=== PATIENT | female | born 1985 | race Caucasian/White ===

== ENCOUNTER 2018-04-20 20:44 | Emergency (ER) | payer BC, OTHER ==
--- NOTE | 2018-04-20 22:38 | ER ---
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 aj Transition of care: patient was not received from another setting of care. Onset of symptoms was April 20, 2018. Risk Assessment: Do you want to hurt yourself or someone else? Patient reports no desire to harm self or others. Initial Sepsis Screen: Does the patient meet any 2 criteria? No. Patient's initial sepsis screen is negative. Does the patient have a suspected source of infection? No. Patient's initial sepsis screen is negative. Care prior to arrival: None. 21:01 Method Of Arrival: Ambulatory aj 21:01 Acuity: KELLEE 4 aj Triage Assessment: 21:03 General: Appears in no apparent distress. comfortable, Behavior is calm, cooperative, aj appropriate for age. Pain: Complains of pain in left knee. Neuro: Level of Consciousness is awake, alert, obeys commands, Oriented to person, place, time, situation, Appropriate for age. Respiratory: Airway is patent Respiratory effort is even, unlabored, Respiratory pattern is regular, symmetrical. Derm: Skin is intact, is healthy with good turgor, Skin is pink, warm \T\ dry. normal. Musculoskeletal: Reports pain in left knee. 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 - Social history:: Smoking status: Patient uses tobacco products, smokes one pack cigarettes per day. Patient uses street drugs, marijuana. - Ebola Screening: : Patient negative for fever greater than or equal to 101.5 degrees Fahrenheit, and additional compatible Ebola Virus Disease symptoms Patient denies exposure to infectious person Patient denies travel to an Ebola-affected area in the 21 days before illness onset No symptoms or risks identified at this time. Screenin:35 Abuse screen: Denies threats or abuse. Denies injuries from another. Nutritional ao screening: No deficits noted. Tuberculosis screening: No symptoms or risk factors identified. Fall Risk None identified. Assessment: 21:33 General: Appears in no apparent distress. uncomfortable, Behavior is calm, cooperative, ao appropriate for age. Pain: Complains of pain in left knee. Neuro: Level of Consciousness is awake, alert, obeys commands, Oriented to person, place, time, situation, Appropriate for age Moves all extremities. Full function Speech is normal. Cardiovascular: Capillary refill < 3 seconds. Respiratory: Airway is patent Respiratory effort is even, unlabored, Respiratory pattern is regular, symmetrical. GI: Abdomen is non-distended. : No signs and/or symptoms were reported regarding the genitourinary system. EENT: No signs and/or symptoms were reported regarding the EENT system. Derm: No signs and/or symptoms reported regarding the dermatologic system. Musculoskeletal: Reports pain in left knee. 22:41 Reassessment: Alexander HODGE in to see pt and discuss xray results with her. fc Vital Signs: 21:03 BP 104 / 75; Pulse 71; Resp 19; Temp 97.7; Pulse Ox 100% on R/A; Weight 54.43 kg; aj Height 5 ft. 2 in. (157.48 cm); 21:03 Body Mass Index 21.95 (54.43 kg, 157.48 cm) aj ED Course: 20:55 Patient arrived in ED. ds1 21:02 Triage completed. aj 21:03 Arm band placed on left wrist. Patient placed in waiting room, Patient notified of wait aj time. X-ray ordered. 21:33 Rinku Griffiths, RN is Primary Nurse. ao 21:35 Patient has correct armband on for positive identification. Pulse ox on. NIBP on. ao 21:36 Knee Left 3 View XRAY In Process Unspecified. EDMS 21:43 Alexander Gomez NP is PHCP. pm1 21:43 Steve Orlando MD is Attending Physician. pm1 22:47 No provider procedures requiring assistance completed. Patient did not have IV access fc during this emergency room visit. Misael wrap to left knee. Administered Medications: 22:41 Drug: [place] 5 mg-325 mg 1 tabs Route: PO; fc 22:59 Follow up: Response: No adverse reaction; Pain is decreased fc Outcome: 22:37 Discharge ordered by MD. pm1 22:49 Discharged to home with crutches, with family. 22:49 Condition: good 22:49 Discharge instructions given to patient, friend, Instructed on discharge instructions, follow up and referral plans. no drinking with medication, no driving heavy equipment, medication usage, crutch walking, Demonstrated understanding of instructions, follow-up care, medications, crutch walking, Prescriptions given X 1. 22:59 Patient left the ED. fc Signatures: Dispatcher [employer] EDMS Meera Dos Santos RN RN aj Chretien, Felicia, RN RN fc Sanford, Demi ds1 Rinku Griffiths RN RN ao Marinas, Patrick, NP MEDIA REPORTER pm1
--- NOTE | 2018-04-20 22:38 | EDPHYS ---
Physician Documentation [facility] Name: Asya Geller Age: 32 yrs Sex: Female : 1985 Arrival Date: 04/20/2018 Time: 20:55 Bed Treatment Private MD: ED Physician Steve Orlando HPI: 04/20 23:00 This 32 yrs old Female presents to ER via Ambulatory with complaints of Knee pm1 Pain. 23:00 The patient presents with pain, that is acute. The complaints affect the left knee. pm1 Context: The problem was sustained at home, resulted from the patient falling, down stairs, the patient can fully bear weight, the patient is able to ambulate, Problem is a result from a previous injury: No. Onset: The symptoms/episode began/occurred today. Modifying factors: the symptoms are aggravated by Touching area. Associated signs and symptoms: Pertinent positives: swelling, Pertinent negatives calf tenderness, numbness, tingling. The patient has not experienced similar symptoms in the past. 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 - Social history:: Smoking status: Patient uses tobacco products, smokes one pack cigarettes per day. Patient uses street drugs, marijuana. - Ebola Screening: : Patient negative for fever greater than or equal to 101.5 degrees Fahrenheit, and additional compatible Ebola Virus Disease symptoms Patient denies exposure to infectious person Patient denies travel to an Ebola-affected area in the 21 days before illness onset No symptoms or risks identified at this time. ROS: 23:00 Constitutional: Negative for fever, chills, and weight loss, Eyes: Negative for injury, pm1 pain, redness, and discharge, ENT: Negative for injury, pain, and discharge, Neck: Negative for injury, pain, and swelling, Cardiovascular: Negative for chest pain, palpitations, and edema, Respiratory: Negative for shortness of breath, cough, wheezing, and pleuritic chest pain, Abdomen/GI: Negative for abdominal pain, nausea, vomiting, diarrhea, and constipation, Back: Negative for injury and pain, : Negative for injury, bleeding, discharge, and swelling. 23:00 Skin: Negative for injury, rash, and discoloration, Neuro: Negative for headache, weakness, numbness, tingling, and seizure. 23:00 MS/extremity: Positive for pain, swelling, tenderness, of the left knee. Exam: 23:00 Constitutional: This is a well developed, well nourished patient who is awake, alert, pm1 and in no acute distress. Head/Face: Normocephalic, atraumatic. Eyes: Pupils equal round and reactive to light, extra-ocular motions intact. Lids and lashes normal. Conjunctiva and sclera are non-icteric and not injected. Cornea within normal limits. Periorbital areas with no swelling, redness, or edema. ENT: Nares patent. No nasal discharge, no septal abnormalities noted. Tympanic membranes are normal and external auditory canals are clear. Oropharynx with no redness, swelling, or masses, exudates, or evidence of obstruction, uvula midline. Mucous membranes moist. Neck: Trachea midline, no thyromegaly or masses palpated, and no cervical lymphadenopathy. Supple, full range of motion without nuchal rigidity, or vertebral point tenderness. No Meningismus. Chest/axilla: Normal chest wall appearance and motion. Nontender with no deformity. No lesions are appreciated. Cardiovascular: Regular rate and rhythm with a normal S1 and S2. No gallops, murmurs, or rubs. Normal PMI, no JVD. No pulse deficits. Respiratory: Lungs have equal breath sounds bilaterally, clear to auscultation and percussion. No rales, rhonchi or wheezes noted. No increased work of breathing, no retractions or nasal flaring. Abdomen/GI: Soft, non-tender, with normal bowel sounds. No distension or tympany. No guarding or rebound. No evidence of tenderness throughout. Back: No spinal tenderness. No costovertebral tenderness. Full range of motion. Skin: Warm, dry with normal turgor. Normal color with no rashes, no lesions, and no evidence of cellulitis. 23:00 Musculoskeletal/extremity: Extremities: grossly normal except: noted in the left knee: ecchymosis, tenderness, There is no evidence of decreased ROM, deformity. Vital Signs: 21:03 BP 104 / 75; Pulse 71; Resp 19; Temp 97.7; Pulse Ox 100% on R/A; Weight 54.43 kg; aj Height 5 ft. 2 in. (157.48 cm); 21:03 Body Mass Index 21.95 (54.43 kg, 157.48 cm) aj MDM: 21:43 Patient medically screened. pm1 22:37 Data reviewed: vital signs. Data interpreted: Pulse oximetry: on room air is 100 %. pm1 Interpretation: normal. Counseling: I had a detailed discussion with the patient and/or guardian regarding: the historical points, exam findings, and any diagnostic results supporting the discharge/admit diagnosis, radiology results, the need for outpatient follow up, to return to the emergency department if symptoms worsen or persist or if there are any questions or concerns that arise at home. 04/20 21:05 Order name: Knee Left 3 View XRAY 04/20 22:43 Order name: Misael Wrap; Complete Time: 22:47 pm1 04/20 22:43 Order name: Crutches; Complete Time: 22:47 pm1 Administered Medications: 22:41 Drug: [place] 5 mg-325 mg 1 tabs Route: PO; 22:59 Follow up: Response: No adverse reaction; Pain is decreased fc Disposition: 04/21 06:38 Co-signature as Attending Physician, Steve Orlando MD Available for consultation at ps1 all times. . Disposition: 04/20/18 22:37 Discharged to Home. Impression: Contusion of left knee. - Condition is Stable. - Discharge Instructions: Contusion, Knee Pain. - Prescriptions for Naprosyn 500 mg Oral Tablet - take 1 tablet by ORAL route 2 times per day take with food; 30 tablet. - Medication Reconciliation Form, Thank You Letter, Antibiotic Education, Prescription Opioid Use form. - Follow up: Emergency Department; When: As needed; Reason: Worsening of condition. Follow up: Private Physician; When: 2 - 3 days; Reason: Recheck today's complaints, Continuance of care, Re-evaluation by your physician. - Problem is new. - Symptoms have improved. Signatures: Dispatcher [employer] Meera Pollock RN RN Shannen Ramirez RN RN Alexander Gomez, MERCERIZING RANGE FEEDER MERCERIZING RANGE FEEDER pm1 Steve Orlando MD MD ps1 Corrections: (The following items were deleted from the chart) 04/20 22:59 22:37 04/20/2018 22:37 Discharged to Home. Impression: Contusion of left knee. fc Condition is Stable. Forms are Medication Reconciliation Form, Thank You Letter, Antibiotic Education, Prescription Opioid Use. Follow up: Emergency Department; When: As needed; Reason: Worsening of condition. Follow up: Private Physician; When: 2 - 3 days; Reason: Recheck today's complaints, Continuance of care, Re-evaluation by your physician. Problem is new. Symptoms have improved. pm1
[2018-04-20] MEDS ORDERED: HYDROCODONE/APAP 5/325 MG TAB ONE (22:45)
--- NOTE | 2018-04-21 07:00 | RAD REPORT ---
EXAM DESCRIPTION: RAD - Knee Left 3 View - 04/20/2018 9:40 pm CLINICAL HISTORY: Knee pain following fall COMPARISON: None. FINDINGS: No fracture, dislocation or periosteal reaction.No joint effusion seen. No joint space sundeep rowing. Contusion or edema changes are present anterior to the knee joint. No foreign body. IMPRESSION: Soft tissue contusion or edema without bone or joint acute finding. Clinical concerns for internal derangement or occult bony injury could be further assessed with MR im aging.
== END 2018-04-20 22:59 | disposition home or self-care (01) ==
LOC: ER 20:44
DX: S80.02XA Contusion of left knee, initial encounter (principal); W10.9XXA Fall (on) (from) unspecified stairs and steps, initial encounter; Y93.9 Activity, unspecified; Y92.009 Unspecified place in unspecified non-institutional (private) residence as the place of occurrence of the external cause; Z98.82 Breast implant status; F17.210 Nicotine dependence, cigarettes, uncomplicated
CPT/HCPCS: 99284

== ENCOUNTER 2025-03-02 00:53 | Emergency (ER) | payer BC, SELFPAY ==
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
[2025-03-02] MEDS ORDERED: ONDANSETRON 4 MG/2 ML VIAL ONE (01:29)
[2025-03-02] MEDS ORDERED: TDAP (DIPHTH,PERTUSS(ACELL),TET VAC) 0.5 ML VIAL IMVAC ONE (01:30)
[2025-03-02] MEDS ORDERED: NA CHLORIDE 0.9% 1,000 ML ONE (01:30)
[2025-03-02] MEDS ORDERED: MORPHINE 4 MG/ML SYR ONE ×2 (01:30→02:07)
[2025-03-02 01:51] LABS: Anion Gap 9.7 mEq/L (5.0-15.0); BUN Blood Urea Nitrogen 21.0 mg/dL (7-18); Glucose Level 114.0 mg/dL (74-106); Potassium 3.7 mEq/L (3.5-5.1)
[2025-03-02 01:52] LABS: Absolute Lymphocytes (CBC) 3.0 K/uL (0.7-4.9); Hematocrit 40.9 % (36.0-45.0); Hemoglobin 14.0 g/dL (12.0-15.0); MCH 31.7 pg (27.0-35.0); MCHC 34.1 g/dL (32.0-36.0); MCV 92.8 fL (80-100); MPV 9.4 fL (7.6-11.3); Nucleated RBC Absolute Count 0.0 (0-0); Nucleated Red Blood Cells % 0.1 % (0-0); RBC Red Blood Cell Count 4.41 M/uL (3.86-4.86); White Blood Count 9.00 thou/uL (4.3-10.9)
[2025-03-02] MEDS ORDERED: LIDOCAINE HCL JELLY 2% 6 ML SYRINGE TOP ONE (02:11)
[2025-03-02] MEDS ORDERED: NA CHLORIDE 0.9% 100 ML ONE (02:52)
[2025-03-02] MEDS ORDERED: LIDOCAINE 2% W/EPI 1:200,000 MPF 20 ML VIAL IM ONE (02:52)
[2025-03-02] MEDS ORDERED: PIPERACIL/TAZO 3.375 GM VIAL IV ONE (02:53)
[2025-03-02] MEDS ORDERED: LORazepam 2 MG/ML VIAL ONE (03:20)
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
--- NOTE | 2025-03-02 03:33 | RAD REPORT ---
EXAM: CT Head and Maxillofacial Without Intravenous Contrast FACILITY: [facility] CLINICAL HISTORY: 39 years, Female; trauma, dog bite TECHNIQUE: Axial computed tomography images of the head/brain and face without intravenous contrast. Sagitta l and coronal reformatted images were created and reviewed. This CT exam was performed using one or more of the following dose reduction techniques: automated exposure control, adjustment of the m A and/or kV according to patient size, and/or use of iterative reconstruction technique. COMPARISON: No relevant prior studies available. FINDINGS: Brain: Unremarkable. No hemorrhage. No significant white matter disease. No edema. Ventricles: Unremarkable. No ventriculomegaly. Bones/joints: No acute fracture. Soft tissues: Laceration along the right anterior maxillary subcutaneous tissues. Subcutaneous emphysema along the right mandible. Sinuses: Unremarkable as visualized. No acute sinusitis. Mastoid air cells: Unremarkable as visualized. No mastoid effusion. Orbits: Unremarkable as visualized. IMPRESSION: 1. No acute intracranial findings. 2. Laceration along the right anterior maxillary subcutaneous tissues. Subcutaneous emphysema along the right mandible. Electronically signed by: Sher Larkin MD 03/02/2025 03:29 AM CDT RP H Due to temporary technical issues with the PACS/[employer] reporting system, reports are being jeremías d by the in-house radiologist without review as a courtesy to ensure prompt reporting the interpreting radiologist is fully responsible for the content of the report. Transcribed Date/Time: 03/02/2025 3:32 AM
--- NOTE | 2025-03-02 03:47 | RAD REPORT ---
EXAM: CT Neck With Intravenous Contrast CLINICAL HISTORY: The patient is 39 years old and is Female; trauma, dog bite TECHNIQUE: Axial computed tomography images of the neck with intravenous contrast. Sagittal and coronal refo rmatted images were created and reviewed. This CT exam was performed using one or more of the following dose reduction techniques: automated exposure control, adjustment of the mA and/or kV acc ording to patient size, and/or use of iterative reconstruction technique. COMPARISON: No relevant prior studies available. FINDINGS: OROPHARYNX: Unremarkable. No significant tonsillar enlargement. No peritonsillar abscess. HYPOPHARYNX: Unremarkable. LARYNX: Unremarkable. Normal epiglottis. TRACHEA: Unremarkable. RETROPHARYNGEAL SPACE: Unremarkable. SUBMANDIBULAR/PAROTID GLANDS: Unremarkable. Glands are normal in size. THYROID: Unremarkable. No enlarged or calcified nodules. BONES/JOINTS: Incidental notation of torus maxillaris. No acute fracture. SOFT TISSUES: Cutaneous irregularity in the anterior right facial soft tissues possibly related t o reported history of recent trauma. Multiple foci of soft tissue gas along the lateral inferior right facial/perimandibular soft tissues with some ill-defined fat stranding. VASCULATURE: No acute findings. LYMPH NODES: Unremarkable. No lymphadenopathy. DENTAL: Streak artifact due to dental hardware. LUNG APICES: Unremarkable as visualized. IMPRESSION: 1. Cutaneous irregularity in the anterior right facial soft tissues possibly related to reported hi story of recent trauma. 2. Multiple foci of soft tissue gas along the lateral inferior right facial/perimandibular soft tis sues with some ill-defined fat stranding. This is likely related to reported history of penetrating trauma. Infection could also produce this. Electronically signed by: Garrett Gross MD 03/02/2025 03:44 AM CDT Due to temporary technical issues with the PACS/[employer] reporting system, reports are being jeremías d by the in-house radiologist without review as a courtesy to ensure prompt reporting the interpreting radiologist is fully responsible for the content of the report. Transcribed Date/Time: 03/02/2025 3:47 AM
--- NOTE | 2025-03-02 04:03 | ER ---
Nurse's Notes [facility] Name: Asya Geller Age: 39 yrs Sex: Female : 1985 Arrival Date: 03/02/2025 Time: 00:53 Bed 5 Private MD: Diagnosis: Bitten by dog;Laceration without foreign body of other part of head, initial encounter;Laceration without foreign body of nose, initial encounter;Puncture wound without foreign body of unspecified part of neck, initial encounter Presentation: 03/02 01:00 Chief complaint: Patient states: UNPROVOKED ATTACK BY HER DOG. STATES SHE WAS BIT IN jj7 HER FACE, NECK AND LIP. Coronavirus screen: At this time, the client does not indicate any symptoms associated with coronavirus-19. Ebola Screen: No symptoms or risks identified at this time. Initial Sepsis Screen: Does the patient meet any 2 criteria? No. Patient's initial sepsis screen is negative. Does the patient have a suspected source of infection? No. Patient's initial sepsis screen is negative. Risk Assessment: Do you want to hurt yourself or someone else? Patient reports no desire to harm self or others. Onset of symptoms was March 02, 2025. 01:00 Method Of Arrival: Ambulatory 7 01:00 Acuity: KELLEE 3 jj7 Triage Assessment: 01:00 General: Appears in no apparent distress. uncomfortable, Behavior is calm, cooperative, jj7 appropriate for age. Pain: Complains of pain in face and neck Pain currently is 10 out of 10 on a pain scale. Derm: Skin LAC TO RIGHT CHEEK. PUNCTURE WOUNDS TO LIP AND UNDER NECK. Musculoskeletal: 01:00 Injury Description: Laceration sustained to right cheek Puncture sustained to mouth and jj7 neck. PATIENT SUPPORT TECH: 01:00 LMP N/A - Hysterectomy, Not jj7 Historical: - Allergies: 02:52 Keflex; jj7 - PMHx: 02:52 Depressive disorder; ADHD; jj7 - Immunization history:: Adult Immunizations up to date, Last tetanus immunization: < 5 years ago. - Infectious Disease History:: Denies. - Social history:: Smoking status: Patient reports the use of cigarette tobacco products, smokes one-half pack cigarettes per day, Patient uses alcohol, weekly. street drugs, marijuana, Patient/guardian denies using. Screenin:14 [facility] ED Fall Risk Assessment (Adult) History of falling in the last 3 months, bm8 including since admission No falls in past 3 months (0 pts) Confusion or Disorientation No (0 pts) Intoxicated or Sedated No (0 pts) Impaired Gait No (0 pts) Mobility Assist Device Used No (0 pt) Altered Elimination No (0 pt) Score/Fall Risk Level 0 - 2 = Low Risk Oriented to surroundings, Maintained a safe environment, Educated pt \T\ family on fall prevention, incl call for assistance when getting out of bed, Assessed \T\ reinforced patient's understanding of fall precautions, Hourly rounding (assess needs \T\ fall precautionary measures) done, Used ambulatory aids as needed (educated on \T\ assisted with), Used gait belt as appropriate. Abuse screen: Denies threats or abuse. Nutritional screening: No deficits noted. Tuberculosis screening: No symptoms or risk factors identified. Assessment: 02:15 Reassessment: This RN called to report bite. RN spoken to Melanie. pt informed bethel to call when she gets home to call report. 03:16 Reassessment: Patient appears in no apparent distress at this time. Patient and/or bm8 family updated on plan of care and expected duration. Pain level reassessed. Patient is alert, oriented x 3, equal unlabored respirations, skin warm/dry/pink. Patient states feeling better. Vital Signs: 01:00 BP 127 / 90; Pulse 93; Resp 16; Temp 97.6; Pulse Ox 98% ; Weight 58.97 kg; Height 5 ft. jj7 2 in. ; Pain 10/10; 03:16 BP 121 / 84; Pulse 78; Resp 17; Temp 97.6; Pulse Ox 100% ; Pain 3/10; bm8 01:00 Body Mass Index 23.78 (58.97 kg, 157.48 cm) jj7 01:00 Pain Scale: Adult jj7 03:16 Pain Scale: Adult bm8 [place] Coma Score: 03:16 Eye Response: spontaneous(4). Motor Response: obeys commands(6). Verbal Response: bm8 oriented(5). Total: 15. ED Course: 00:53 Patient arrived in ED. mr 01:00 Arm band placed on right wrist. Patient placed in an exam room, on a stretcher. jj7 01:06 Triage completed. jj7 01:12 Rodríguez Briceno PA-C is PHCP. cp 01:12 Emeka Hung DO is Attending Physician. cp 01:15 Inserted saline lock: 18 gauge in right antecubital area, using aseptic technique. bm8 Blood collected. Flushed with 10 mL NS. 01:20 Freddy Herrera, RN is Primary Nurse. bm8 02:40 CT Head Brain wo Cont In Process Unspecified. EDMS 02:40 CT Facial Bones W/ Con \T\ Mpr In Process Unspecified. EDMS 02:41 CT Soft Tissue Neck W/contr In Process Unspecified. EDMS 04:01 Bowen Loya MD is Referral Physician. cp 04:13 Assist provider with laceration repair on right cheek that was between 2.6 to 7.5 cm bm8 using sutures. Set up tray. Performed by Rodríguez Briceno PA-C Patient tolerated well. IV discontinued, intact, bleeding controlled, No redness/swelling at site. Pressure dressing applied. 04:15 Patient has correct armband on for positive identification. Bed in low position. Call bm8 light in reach. Side rails up X 1. Adult w/ patient. Provided Education on: post er care. Administered Medications: 01:37 Drug: NS 0.9% IV 1000 ml IV at 1000 ml once; to be given as a bolus over 60 minutes bm8 Route: IV; Rate: 1000 ml; Site: right antecubital; 03:25 Follow up: Response: No adverse reaction; IV Status: Completed infusion bm8 01:37 Drug: morphine IVP or IV 4 mg IVP once over 4 mins Route: IVP; Infused Over: 4 mins; bm8 Site: right antecubital; 03:26 Follow up: Response: No adverse reaction bm8 01:37 Drug: Boostrix Tdap IM 0.5 ml IM once; as a single dose Route: IM; Site: right deltoid; bm8 03:26 Follow up: Response: No adverse reaction bm8 01:37 Drug: Ondansetron IVP 4 mg IVP once; over 2 minutes Route: IVP; Site: right antecubital;bm8 03:26 Follow up: Response: No adverse reaction bm8 03:05 Drug: Piperacillin-Tazobactam IVPB 3.375 grams IVPB once over 60 mins; (mix in NS 100 bm8 mL) Route: IVPB; Infused Over: 60 mins; Site: right antecubital; 03:35 Follow up: Response: No adverse reaction; IV Status: Completed infusion bm8 03:06 Drug: Lidocaine Infiltration (2 %) 20 ml 5 ml Infiltration once; with epinephrine bm8 Volume: 5 ml; Route: Infiltration; 03:36 Follow up: Response: No adverse reaction bm8 03:25 Drug: Ativan IVP 1 mg IVP once Route: IVP; Site: right antecubital; bm8 03:46 Follow up: Response: No adverse reaction bm8 Medication: 03:16 Vaccine Information Statement (VIS) provided today. Questions and/or concerns bm8 addressed. VIS edition date: December 27, 2020. Outcome: 04:03 Discharge ordered by MD. santoyo 04:13 Discharged to home ambulatory, with family, bm8 04:13 Condition: stable 04:13 Discharge instructions given to patient, family, Instructed on discharge instructions, follow up and referral plans. no drinking with medication, no driving heavy equipment, medication usage, safety practices, Demonstrated understanding of instructions, follow-up care, medications, Prescriptions given X 2, 04:16 Patient left the ED. bm8 Signatures: Dispatcher [employer] EDID RojasAlberta du, Phil Reg Rodríguez Briceno, PA-C PASpenser Melendrez cp, RN RN jj7 Freddy Herrera RN RN bm8 Corrections: (The following items were deleted from the chart) 03:08 03:08 Allergies: unknown abx; bm8 bm8 03:08 03:08 PMHx: PTSD; bm8 bm8
--- NOTE | 2025-03-02 04:04 | EDPHYS ---
Physician Documentation [facility] Name: Asya Geller Age: 39 yrs Sex: Female : 1985 Arrival Date: 03/02/2025 Time: 00:53 Bed 5 Private MD: ED Physician Emeka Hung HPI: 03/02 01:20 This 39 yrs old Female presents to ER via Ambulatory with complaints of Dog Bite to face. 01:20 The patient was bitten on the face, by a dog, as a result of being attacked by the animal, in an unprovoked manner, at home. 01:20 Onset: The symptoms/episode began/occurred just prior to arrival. Animal information: Animal control has been notified. Secondary to the bite the patient reports multiple lacerations, that are deep, largest noted to right facial cheek. 01:20 Associated signs and symptoms: Pertinent positives: bony tenderness, with a possible cp underlying fracture, swelling at site, Pertinent negatives: fever, motor deficit. GEOLOGICAL E LOGGER: 01:00 LMP N/A - Hysterectomy, Not jj7 Historical: - Allergies: 02:52 Keflex; jj7 - PMHx: 02:52 Depressive disorder; ADHD; jj7 - Immunization history:: Adult Immunizations up to date, Last tetanus immunization: < 5 years ago. - Infectious Disease History:: Denies. - Social history:: Smoking status: Patient reports the use of cigarette tobacco products, smokes one-half pack cigarettes per day, Patient uses alcohol, weekly. street drugs, marijuana, Patient/guardian denies using. ROS: 01:25 Constitutional: Negative for body aches, chills, fever, poor PO intake, cp 01:25 Skin: Positive for laceration(s), of the face, multiple with largest noted to right cp facial cheek, 01:25 Neuro: Negative for altered mental status, dizziness, headache, numbness, weakness, Exam: 01:25 Constitutional: The patient appears in no acute distress, alert, awake, cp non-diaphoretic, non-toxic, well developed, well nourished, in obvious pain, uncomfortable, 01:25 Eyes: Pupils: equal, round, and reactive to light and accomodation, Conjunctiva: cp normal, no exudate, no injection, Sclera: no appreciated abnormality, Lids and lashes: appear normal, bilaterally, :25 ENT: External ear(s): are unremarkable, Nose: bleeding, and is minimal, no septal hematoma is appreciated, laceration, that is superficial, that is linear, right side of upper bridge of nose, Mouth: Lips: moist, Oral mucosa: moist, Posterior pharynx: Airway: no evidence of obstruction, patent, :25 Neck: External neck: puncture wound, small deep laceration noted anterior upper neck cp and right lateral lower jaw with no active bleeding, surrounding swelling and tenderness to palpation, C-spine: vertebral tenderness, is not appreciated, crepitus, is not appreciated, ROM/movement: limited range of motion, is not appreciated, :25 Chest/axilla: Inspection: normal, Palpation: is normal, no crepitus, no tenderness, :25 Cardiovascular: Rate: normal, Rhythm: regular, JVD: is not appreciated, :25 Respiratory: the patient does not display signs of respiratory distress, Respirations: normal, no use of accessory muscles, no retractions, labored breathing, is not present, Breath sounds: are clear throughout, no decreased breath sounds, no stridor, no wheezing, :25 Abdomen/GI: Inspection: abdomen appears normal, Palpation: abdomen is soft and non-tender, in all quadrants, :25 Back: pain, is absent, ROM is normal, :25 Neuro: Orientation: to person, place \T\ time. Mentation: is normal, Motor: moves all fours, strength is normal, Sensation: no obvious gross deficits, Vital Signs: 01:00 BP 127 / 90; Pulse 93; Resp 16; Temp 97.6; Pulse Ox 98% ; Weight 58.97 kg; Height 5 ft. jj7 2 in. ; Pain 10/10; 03:16 BP 121 / 84; Pulse 78; Resp 17; Temp 97.6; Pulse Ox 100% ; Pain 3/10; bm8 01:00 Body Mass Index 23.78 (58.97 kg, 157.48 cm) j7 01:00 Pain Scale: Adult jj7 03:16 Pain Scale: Adult bm8 [place] Coma Score: 03:16 Eye Response: spontaneous(4). Motor Response: obeys commands(6). Verbal Response: bm8 oriented(5). Total: 15. Laceration: 03:55 Wound Repair of 6cm ( 2.4in ) subcutaneous laceration to right facial cheek. cp Irregularly shaped.. Skin/tissue flap noted.. Distal neuro/vascular/tendon intact. Anesthesia: Wound infiltrated with 5 mls of 2% lidocaine. Wound prep: Moderate cleansing by me. Skin closed with 5 5-0 Prolene using interrupted sutures and sterile technique. Dressed with Bacitracin, 4x4's. Patient tolerated well. MDM: 01:12 Medical Screening Exam initiated cp 02:00 Differential diagnosis: superficial laceration, vascular injury, rabies, facial cp fracture. 04:02 Data reviewed: vital signs, nurses notes, lab test result(s), radiologic studies, CT cp scan, and as a result, I will discharge patient. 04:02 I considered the following discharge prescriptions or medication management in the emergency department Medications were administered in the Emergency Department. See MAR. 04:02 Counseling: I had a detailed discussion with the patient and/or guardian regarding the historical points, exam findings, and any diagnostic results supporting the discharge/admit diagnosis, lab results, radiology results, the need for outpatient follow up, a plastic surgeon, to return to the emergency department if symptoms worsen or persist or if there are any questions or concerns that arise at home. Response to treatment: the patient's symptoms have markedly improved after treatment. Special discussion: I discussed in detail with the patient the higher chance of wound infection based on his presenting history. 03/02 01:17 Order name: Basic Metabolic Panel; Complete Time: 02:17 03/02 02:17 Interpretation: Normal except: GLUC 114; BUN 21; GFR 83; CA 8.4. 03/02 01:17 Order name: CBC with Diff; Complete Time: 02:17 03/02 01:17 Order name: Test, Serum; Complete Time: 02:17 03/02 01:17 Order name: CT Head Brain wo Cont 03/02 01:17 Order name: CT Facial Bones W/ Con \T\ Mpr 03/02 01:17 Order name: CT Soft Tissue Neck W/contr 03/02 01:17 Order name: Labs collected and sent; Complete Time: 01:38 03/02 02:17 Order name: Wound Care: irrigate facial wounds; Complete Time: 03:06 cp Administered Medications: 01:37 Drug: NS 0.9% IV 1000 ml IV at 1000 ml once; to be given as a bolus over 60 minutes bm8 Route: IV; Rate: 1000 ml; Site: right antecubital; 03:25 Follow up: Response: No adverse reaction; IV Status: Completed infusion bm8 01:37 Drug: morphine IVP or IV 4 mg IVP once over 4 mins Route: IVP; Infused Over: 4 mins; bm8 Site: right antecubital; 03:26 Follow up: Response: No adverse reaction bm8 01:37 Drug: Boostrix Tdap IM 0.5 ml IM once; as a single dose Route: IM; Site: right deltoid; bm8 03:26 Follow up: Response: No adverse reaction bm8 01:37 Drug: Ondansetron IVP 4 mg IVP once; over 2 minutes Route: IVP; Site: right antecubital;bm8 03:26 Follow up: Response: No adverse reaction bm8 03:05 Drug: Piperacillin-Tazobactam IVPB 3.375 grams IVPB once over 60 mins; (mix in NS 100 bm8 mL) Route: IVPB; Infused Over: 60 mins; Site: right antecubital; 03:35 Follow up: Response: No adverse reaction; IV Status: Completed infusion bm8 03:06 Drug: Lidocaine Infiltration (2 %) 20 ml 5 ml Infiltration once; with epinephrine bm8 Volume: 5 ml; Route: Infiltration; 03:36 Follow up: Response: No adverse reaction bm8 03:25 Drug: Ativan IVP 1 mg IVP once Route: IVP; Site: right antecubital; bm8 03:46 Follow up: Response: No adverse reaction bm8 Disposition: 06:54 Co-signature as Attending Physician, Emeka Hung DO PA/PRE K LEAD TEACHER's history reviewed, tt7 patient interviewed, and examined. I agree with assessment and care plan and confirm the diagnosis (es) above. 03/03 02:42 Chart complete. cp Disposition Summary: 03/02/25 04:03 Discharge Ordered Notes: Location: Home cp Problem: new cp Symptoms: have improved cp Condition: Stable cp Diagnosis - Bitten by dog cp - Laceration without foreign body of other part of head, initial encounter cp - Laceration without foreign body of nose, initial encounter cp - Puncture wound without foreign body of unspecified part of neck, initial encounter cp Followup: cp - With: Bowen Loya MD - When: 2 - 3 days - Reason: Wound Recheck Discharge Instructions: - Discharge Summary Sheet cp - Laceration Care, Adult cp - Nonsutured Laceration Care cp - Facial Laceration cp - Puncture Wound cp Forms: - Medication Reconciliation Form cp - Antibiotic Education cp - Prescription Opioid Use cp - Patient Portal Instructions cp - Leadership Thank You Letter cp Prescriptions: - Augmentin 875-125 mg Oral tablet - take 1 tablet ORAL route every 12 hours for 14 days; 28 tablet; Refills: 0, cp Product Selection Permitted - Tylenol-Codeine #3 300mg-30mg Oral tablet - take 1 tablet ORAL route every 4 hours As needed; 16 tablet; Refills: 0, cp Product Selection Permitted Signatures: Dispatcher [employer] EDMS Rodríguez Briceno PA-C PA-C cp Johnson, Juwairiyah RN RN jj7 Freddy Herrera RN RN bm8 Emeka Hung DO DO tt7 Corrections: (The following items were deleted from the chart) 03/02 01:18 01:17 Head Brain Wo Cont+CT.RAD.BRZ ordered. EDMS EDMS :18 01:18 Facial Bones W/ Con \T\ MPR+CT.RAD.BRZ ordered. EDMS EDMS 01:18 01:18 Soft Tissue Neck W/Contr+CT.RAD.BRZ ordered. EDMS EDMS 01:18 01:18 BASIC METABOLIC PANEL+C.LAB.BRZ ordered. EDMS EDMS :18 01:18 CBC+H.LAB.BRZ ordered. EDMS EDMS 01:18 01:18 TYPE AND SCREEN+BB.LAB.BRZ ordered. EDMS EDMS :18 01:18 TEST, SERUM+SC.LAB.BRZ ordered. EDMS EDMS 03:08 03:08 Allergies: unknown abx; bm8 bm8 03:08 03:08 PMHx: PTSD; bm8 bm8
[2025-03-02 05:35] VITALS: TEMP 97.6
[2025-03-02 05:36] VITALS: BP 121/84; O2SAT 100
== END 2025-03-02 04:16 | disposition home or self-care (01) ==
LOC: ER 00:53
PROC: 0HQ1XZZ Repair Face Skin, External Approach (ICD-10-PCS; principal; 2025-03-02)
DX: S01.411A Laceration without foreign body of right cheek and temporomandibular area, initial encounter (principal); S01.21XA Laceration without foreign body of nose, initial encounter; S11.83XA Puncture wound without foreign body of other specified part of neck, initial encounter; W54.0XXA Bitten by dog, initial encounter
CPT/HCPCS: 36415; 70450; 70487; 70491; 76377; 80048; 84703; 85025; 90715; 96361; 96365; 96372; 96375; 99284; J2405; J2543; J7030; Q9967